=== PATIENT | male | born 1975 | race Caucasian/White ===

== ENCOUNTER → 2020-05-06 | Outpatient (CLI) | payer BC ==
[~2020-05-06] MED LIST: ACETAMINOPHEN W1 TA6 PO; NO HOME MEDICATIONS; PREDNISONE20 MG PO; PROVENTIL0.09 MG/A1 IH
== END ==
LOC: COL.LAB 15:30
DX: M79.10 Myalgia, unspecified site (principal); R50.9 Fever, unspecified; Z20.828 Contact with and (suspected) exposure to other viral communicable diseases